=== PATIENT | male | born 1970 | race Caucasian/White ===

== ENCOUNTER 2016-05-06 12:24 | Emergency (ER) | payer OTHER ==
[~2016-05-06] VITALS: Ht 190.5 cm; Wt 123.4 kg
[2016-05-06] MEDS ORDERED: CYCLOBENZAPRINE10 M1 PO (13:56)
[2016-05-06] MEDS ORDERED: PERCOCET 5-3251 EACH PO (13:56)
[2016-05-06] MEDS ORDERED: MEDROL4 M2 PO (13:56)
[2016-05-06] MEDS ORDERED: IBUPROFEN800 M1 PO (13:56)
--- NOTE | 2016-05-06 13:58 | ED NECK/BACK PAIN COMPLAINT ---
History of Present Illness General Chief Complaint: Low Back Pain/Injury Stated Complaint: LOW BACK PAIN Source: patient Exam Limitations: no limitations Vital Signs & Intake/Output Vital Signs & Intake/Output Vital Signs Date Time Temp Pulse Resp B/P Pulse O2 O2 Flow FiO2 Ox Delivery Rate 05/06 1403 74 148/85 05/06 1229 96.9 64 18 158/95 97 Room Air ED Intake and Output 05/07 0000 05/06 1200 Intake Total Output Total Balance Patient 272 lb Weight Allergies Coded Allergies: No Known Allergies (05/06/16) Reconcile Medications Cyclobenzaprine HCl 10 MG TABLET 1 TAB PO TID SPASMS Ibuprofen 800 MG TABLET 1 TAB PO TID pain Methylprednisolone. (Medrol) 4 MG TAB.DS.PK 1 DP PO AD back pain 6 on day 1 then reduce by one tablet daily until gone Oxycodone HCl/Acetaminophen (Percocet 5-325 MG Tablet) 5 MG-325 MG TABLET 1-2 TAB PO Q6P PRN PAIN Triage Note: PT TO ED FOR LOW BACK PAIN AFTER BENDING DOWN AT WORK YESTERDAY. NO LOSS B/B, DENIES NUMBNESS/TINGLING, TOOK ADVIL WITH NO RELIEF THIS AM. Triage Nurses Notes Reviewed? yes Onset: Abrupt Duration: day(s):, constant, continues in ED Timing: recent history Quality/Severity: moderate, severe Location: lumbar spine Loss of Consciousness: no loss of consciousness HPI: 45-year-old male comes into emergency room for further evaluation of low back pain. Pain is sharp. Continuous. Patient reports that yesterday when bending over and standing up he felt a pop in his lower back on the right side. Patient has been experiencing a sharp pain since then. Pain radiates down into the right groin. Denies any weakness in his lower legs. Denies any urinary bowel dysfunction. Pain is worse with any type or range of motion. Denies any prior history of back problems or any other associated symptoms. (SHU RUFF,VALERIA) Past History Travel History Traveled to [place] past 21 day No Medical History Any Pertinent Medical History? see below for history Neurological: NONE EENT: NONE Cardiovascular: NONE Respiratory: NONE Gastrointestinal: NONE Hepatic: NONE Renal: KIDNEY STONES Musculoskeletal: NONE Psychiatric: NONE Endocrine: NONE Blood Disorders: NONE Cancer(s): BLADDER CA 2014 Surgical History Surgical History: non-contributory Psychosocial History What is your primary language Togolese Tobacco Use: Never used ETOH Use: occasional use Illicit Drug Use: denies illicit drug use Family History Hx Contributory? No (VALERIA PALOMINO) Review of Systems Review of Systems Constitutional: Reports: no symptoms. Eyes: Reports: no symptoms. Ears, Nose, Throat, Mouth: Reports: no symptoms. Respiratory: Reports: no symptoms. Cardiovascular: Reports: no symptoms. Gastrointestinal/Abdominal: Reports: no symptoms. Musculoskeletal: Reports: see HPI. Skin: Reports: no symptoms. Neurological/Psychological: Reports: no symptoms. All Other Systems: Reviewed and Negative (VALERIA PALOMINO) Physical Exam Physical Exam General Appearance: well developed/nourished, mild distress Head: atraumatic Eyes: Bilateral: normal appearance. Ears, Nose, Throat, Mouth: hearing grossly normal, moist mucous membrane Neck: normal inspection, full range of motion Respiratory: no respiratory distress Back: normal inspection, decreased range of motion, no vertebral tenderness Extremities: normal range of motion Straight Leg Raising: Right: Negative. Left: Negative. Motor: Deficit L4 Right: No Deficit L4 Left: No Deficit L5 Right: No Deficit L5 Left: No Deficit S1 Right: No Deficit S1 Right: No DTR: Patellar: 2: L4 Right, L4 Left. Neurologic/Psych: awake, alert, oriented x 3, normal mood/affect Skin: intact, normal color, warm/dry (VALERIA PALOMINO) Progress Differential Diagnosis: aortic dissection, cauda equina syn, herniated disc, myofascial strain, pyelo/UTI, sciatica, spinal cord inj, thoracic outlet syn Plan of Care: see below Comments: 05/06/2016 3:30:44 PM Patient clinically looks well. Nontoxic-appearing. In no apparent distress. Resting comfortably in room. There is no evidence of any type of motor weakness on exam. Herniated disc versus a myofascial strain. Patient referred to occupational medicine. Patient treated symptomatically for herniated disc. Patient will need orthopedic referral. Return if any other concerns. Patient will have to follow-up with occupational medicine. Patient may require physical therapy and MRI of lower back. Patient was educated on red flags of back pain and told to return immediately if any other concerns worsening symptoms. (VALERIA PALOMINO) Departure Departure Disposition: HOME OR SELF CARE Condition: Stable Clinical Impression Primary Impression: Lumbar radiculopathy, acute Referrals: TERRENCE DAVE,JAMES HA MD,KYE Ho (PCP/Family) Additional Instructions: Take ibuprofen, Medrol Dosepak, Flexeril, and Percocet as needed for pain. Follow-up with occupational medicine. You will need consult with orthopedic doctor/neurosurgeon a low back. If symptoms persist YOU will require MRI for evaluation of disc herniation. No heavy lifting. Seated work only. If you have any urinary bowel dysfunction, or focal weakness in your right lower leg and return to the emergency room immediately for further evaluation. Please go over all results of today's visit with your primary care doctor. Contact your primary care doctor to let them know you were here in the emergency room. There may be nonspecific findings which may not be related to your visit today here in the emergency room but may require further evaluation and chronic monitoring by your primary care doctor. If you had a laceration today the chance of foreign body always remains. You should follow-up with your primary care doctor for recheck in 3-5 days for a wound check. If you had an x-ray done there is a chance that a fracture could have been missed on initial read and you should follow-up with your primary care doctor for repeat x-rays if symptoms persist. If your blood pressure was elevated here in the emergency room please have rechecked by her primary care doctor within the next 48 hours by your primary care doctor. If you were prescribed a narcotic here in the emergency room or any type of controlled substances you're not allowed to drive while taking this medication or operate any type of heavy machinery. Narcotics can make you feel lightheaded dizziness nausea and can cause constipation. You may need to rock picker a stool softener. Thank you for choosing [facility] emergency room. Please return to the emergency room immediately if you have any other concerns worsening of symptoms. Departure Forms: Customer Survey General Discharge Information Prescriptions: Current Visit Scripts Methylprednisolone. (Medrol) 1 DP PO AD #1 DP 6 on day 1 then reduce by one tablet daily until gone Ibuprofen 1 TAB PO TID #30 TAB Cyclobenzaprine HCl 1 TAB PO TID #30 TAB Oxycodone HCl/Acetaminophen (Percocet 5-325 MG Tablet) 1-2 TAB PO Q6P PRN PAIN #20 TAB (VALERIA PALOMINO) PA/[employer] Co-Sign Statement Statement: ED Attending supervision documentation- [] I saw and evaluated the patient. I have also reviewed all the pertinent lab results and diagnostic results. I agree with the findings and the plan of care as documented in the PA's/[facility] [employer]'s documentation. [X] I have reviewed the ED Record and agree with the PA's/SU[employer] [employer] [facility]'s documentation. [] Additions or exceptions (if any) to the PAs/SUPER[employer] [employer] [facility]'s note and plan are summarized below: [] (ABDI DAVE,ANTONI)
[2016-05-06 14:03] VITALS: BP 148/85
== END 2016-05-06 14:03 ==
LOC: ERH 12:24
DX: M54.16 Radiculopathy, lumbar region (principal)